=== PATIENT | male | born 1985 ===

== ENCOUNTER 2021-03-27 16:00 | Observation (INO) | payer SELFPAY ==
[2021-03-27] MEDS ORDERED: SODIUM CHLORIDE 0.9% 1000 ML 1,000 ML IV ONE (17:13)
[2021-03-27] MEDS ORDERED: MORPHINE 4 MG/1 ML INJ IV ONE (17:13)
[2021-03-27] MEDS ORDERED: ONDANSETRON 4 MG/2 ML INJ IV ONE (17:13)
--- NOTE | 2021-03-27 17:15 | Emergency Department Report ---
<ANNABEL ROTHMANNICOLE Sims - Last Filed: 03/27/21 22:17> ED Abdominal Pain HPI - General Chief Complaint: Abdominal Pain Stated Complaint: UNTREATED HERNIA/ NO BM X3DAYS/NAUSEA LBK PAIN Time Seen by Provider: 03/27/21 17:13 - Related Data Previous Rx's Medication Instructions Recorded Last Taken Type Ciprofloxacin HCl [Ciprofloxacin 500 mg PO BID #10 tablet 07/12/16 1 Day Ago Rx TAB] ~07/16/16 oxyCODONE /ACETAMINOPHEN [Percocet 1 tab PO Q6HR PRN #30 tablet 07/12/16 1 Day Ago Rx 5/325 mg] ~07/16/16 Allergies Allergy/AdvReac Type Severity Reaction Status Date / Time No Known Allergies Allergy Verified 07/09/16 20:28 ED Past Medical Hx - Medications Home Medications: Home Medications Medication Instructions Recorded Confirmed Last Taken Type Ciprofloxacin HCl [Ciprofloxacin 500 mg PO BID #10 tablet 07/12/16 03/27/21 1 Day Ago Rx TAB] ~07/16/16 oxyCODONE /ACETAMINOPHEN [Percocet 1 tab PO Q6HR PRN #30 tablet 07/12/16 03/27/21 1 Day Ago Rx 5/325 mg] ~07/16/16 ED Course - Reevaluation(s) Reevaluation #1: I reviewed the findings and management of this patient in real-time and I have personally seen and examined this patient and participated in the decision making for this patient with the midlevel. Patient is a 35-year-old male who presents emergency room for right lower quadrant abdominal pain. Patient also complains of constipation x3 or 4 days and nausea. Patient states he is also been having vomiting over the last 24 hours. Patient states the pain is severe. Patient states the pain is unbearable. Patient states that he is able to walk due to the pain. Patient states the pain is better with rest. Patient states the pain is worse with palpation and movement. Patient had a CT scan done and it showed a large right lower quadrant ventral hernia with small and large bowel. No signs of obstruction on the CT scan. I examined the patient. Patient lung sounds are clear. Patient's CV exam shows a normal S1-S2. Patient is extremely tender at the right lower quadrant and the hernia is not reducible. Clinically the patient's exam is concerning for a bowel obstruction. We will consult general surgery. Patient will be admitted to the hospitalist service for further evaluation and treatment. Patient will require admission. I discussed all results with patient. I discussed plan of care with patient. Patient agrees with plan of care and admission. Patient to be admitted to the hospitalist service. 03/27/21 21:50 ED Medical Decision Making - Lab Data Result diagrams: 03/27/21 17:51 03/27/21 17:51 ED Disposition Clinical Impression: Intractable abdominal pain, Nausea Constipation Qualifiers: Constipation type: unspecified constipation type Qualified Code(s): K59.00 - Constipation, unspecified Ventral hernia Qualifiers: Obstruction and gangrene presence: without obstruction or gangrene Qualified Code(s): K43.9 - Ventral hernia without obstruction or gangrene Disposition: 02 [facility]ORT [facility]M [facility] Condition: Stable Print Language: SLOVENIAN <SUSU CHRISTY - Last Filed: 03/27/21 22:49> ED Abdominal Pain HPI - 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 Patient states that he had an appendectomy approximately 4 years ago. He states he then noticed a small hernia to the right lower side that began a year ago. He states in the last week it has gotten significantly larger and he feels like "it has torn open." He states that he has not had a bowel movement in 3 days. He states he is not able to pass gas. He has associated nausea. he denies any vomiting, no diarrhea, no hematochezia, no melena, no hematemesis, no urinary symptoms. Patient denies any past medical history. No allergies to medications. Severity scale (0 -10): 5 ED Review of Systems ROS: Stated complaint: UNTREATED HERNIA/ NO BM X3DAYS/NAUSEA LBK PAIN Other details as noted in HPI Comment: All other systems reviewed and negative ED Past Medical Hx - Past Medical History Previous Medical History?: No Hx Congestive Heart Failure: No Hx Diabetes: No Hx Asthma: No Hx COPD: No - Surgical History Past Surgical History?: No - Social History Smoking Status: Never Smoker ED Physical Exam - General Limitations: No Limitations General appearance: alert, in no apparent distress - Head Head exam: Present: atraumatic, normocephalic - Eye Eye exam: Present: normal appearance - ENT ENT exam: Present: mucous membranes moist - Respiratory Respiratory exam: Present: normal lung sounds bilaterally. Absent: respiratory distress, wheezes, rales, rhonchi, stridor, chest wall tenderness, accessory mus matias use, decreased breath sounds, prolonged expiratory - Cardiovascular Cardiovascular Exam: Present: regular rate, normal rhythm, normal heart sounds. Absent: systolic murmur, diastolic murmur, rubs, gallop - GI/Abdominal GI/Abdominal exam: Present: soft, tenderness (RLQ), guarding (voluntary), hernia (large RLQ hernia ). Absent: rebound, rigid - Neurological Exam Neurological exam: Present: alert, oriented X3 - Psychiatric Psychiatric exam: Present: normal affect, normal mood - Skin Skin exam: Present: warm, dry, intact ED Course Vital Signs 03/27/21 03/27/21 03/27/21 17:10 17:38 18:09 Temperature 98.2 F Pulse Rate 80 77 Respiratory 18 18 Rate Blood Pressure Blood Pressure 151/98 [Right] O2 Sat by Pulse 98 97 Oximetry 03/27/21 03/27/21 18:12 18:16 Temperature Pulse Rate 91 H Respiratory 20 35 H Rate Blood Pressure 136/85 Blood Pressure [Right] O2 Sat by Pulse 99 Oximetry - Consultations Consultation #1: 03/27/[address] Dupont, general surgeon, who will consult on patient 03/27/21 22:[address] Solares, hospitalist who will accept and resume care of patient, will admit to hospitalist service, advised to place patient in surgical with telemetry ED Medical Decision Making - Lab Data Result diagrams: 03/27/21 17:51 03/27/21 17:51 Lab Results 03/27/21 03/27/21 Range/Units 17:51 17:51 WBC 6.4 (4.5-11.0) K/mm3 RBC 5.40 H (3.65-5.03) M/mm3 Hgb 15.2 (11.8-15.2) gm/dl Hct 44.6 (35.5-45.6) % MCV 83 L (84-94) fl MCH 28 (28-32) pg MCHC 34 (32-34) % RDW 13.7 (13.2-15.2) % Plt Count 231 (140-440) K/mm3 Lymph % (Auto) 34.5 (13.4-35.0) % [place] % (Auto) 9.7 H (0.0-7.3) % Eos % (Auto) 5.3 H (0.0-4.3) % Baso % (Auto) 0.7 (0.0-1.8) % Lymph # (Auto) 2.2 (1.2-5.4) K/mm3 [place] # (Auto) 0.6 (0.0-0.8) K/mm3 Eos # (Auto) 0.3 (0.0-0.4) K/mm3 Baso # (Auto) 0.0 (0.0-0.1) K/mm3 Seg Neutrophils % 49.8 (40.0-70.0) % Seg Neutrophils # 3.2 (1.8-7.7) K/mm3 Sodium 141 (137-145) mmol/L Potassium 3.7 (3.6-5.0) mmol/L Chloride 104.3 (98-107) mmol/L Carbon Dioxide 24 (22-30) mmol/L Anion Gap 16 mmol/L BUN 11 (9-20) mg/dL Creatinine 0.6 L (0.8-1.3) mg/dL Estimated GFR > 60 ml/min BUN/Creatinine Ratio 18 % Glucose 91 (75-100) mg/dL Calcium 9.2 (8.4-10.2) mg/dL Total Bilirubin 0.40 (0.1-1.2) mg/dL AST 37 (5-40) units/L ALT 107 H (7-56) units/L Alkaline Phosphatase 127 (35-129) units/L Total Protein 7.9 (6.3-8.2) g/dL Albumin 4.6 (3.9-5) g/dL Albumin/Globulin Ratio 1.4 % Lipase 113 H (13-60) units/L - Radiology Data Radiology results: report reviewed Ordering Physician: JESSEE PERKINS Date of Service: 03/27/21 Procedure(s): CT abdomen pelvis w con Accession Number(s): [id number] cc: JESSEE PERKINS CT ABDOMEN AND PELVIS WITH CONTRAST INDICATION / CLINICAL INFORMATION: Right lower quadrant pain, hernia. Constipation. TECHNIQUE: Axial CT images were obtained through the abdomen and pelvis after 100 cc Om nipaque [address] scans at this location are performed using CT dose reduction for ALARA by means of automated exposure control. COMPARISON: CT abdomen and pelvis with contrast from 07/17/2016. FINDINGS: LOWER CHEST: No significant abnormality. LIVER: There is generalized steatosis without other significant abnormalities. GALLBLADDER: Surgically absent. BILE DUCTS: No significant abnormality. PANCREAS: No significant abnormality. SPLEEN: No significant abnormality. ADRENALS: No significant abnormality. RIGHT KIDNEY / URETER: A subcentimeter simple cyst along the right lower renal pole is unchanged. No other significant abnormalities. LEFT KIDNEY / URETER: Unchanged subcentimeter simple left renal cyst. There is a 3 mm nonobstructive left lower renal pole stone. No other significant abnormalities. STOMACH / SMALL BOWEL: No significant abnormality. COLON: No significant abnormality. APPENDIX: Not visualized. PERITONEUM: No free fluid. No free air. No fluid collection. LYMPH NODES: No significant adenopathy. AORTA / ARTERIES: No significant abnormality. IVC / VEINS: No significant abnormality. URINARY BLADDER: No significant abnormality. REPRODUCTIVE ORGANS: No significant abnormality. ADDITIONAL FINDINGS: There is an uncomplicated large ventral hernia involving the majority of the right abdomen containing fat and multiple small and large bowel loops. SKELETAL SYSTEM: No significant abnormality. IMPRESSION: 1. No acute abnormality of the abdomen or pelvis. 2. Large uncomplicated right ventral hernia. 3. Additional findings as above. Signer Name: Esa Mary MD Signed: 03/27/2021 9:17 PM Workstation Name: [id number] Transcribed By: [place] Dictated By: Esa Mary MD Electronically Authenticated By: Esa Mary MD Signed Date/Time: 03/27/212116 DD/ 11 TD/TT: - Medical Decision Making Language line used for [place] interpretation Patient is a 35-year-old male presents emergency room with complaints of a hernia that exacerbated in the last week. Patient states that he had an appendectomy approximately 4 years ago. He states he then noticed a small hernia to the right lower side that began a year ago. He states in the last week it has gotten significantly larger and he feels like "it has torn open." He states that he has not had a bowel movement in 3 days. He states he is not able to pass gas. He has associated nausea. he denies any vomiting, no diarrhea, no hematochezia, no melena, no hematemesis, no urinary symptoms. Patient denies any past medical history. No allergies to medications. VSS. On exam patient has right lower quadrant abdominal tenderness with large hernia present. Labs with elevated lipase, otherwise stable. CT abdomen pelvis with IV contrast: 1. No acute abnormality of the abdomen or pelvis. 2. Large uncomplicated right ventral hernia. 3. Additional findings as above. Patient given pain medication but continued to have pain. Patient evaluated at bedside by Dr. Chaudhary ED, ER attending who advised admission with surgical consultation. Spoke to Dr. Dupont, general surgeon, who will consult on patient. spoke to Dr. Solares, hospitalist who will accept and resume care of patient, will admit to hospitalist service, advised to place patient in 3B surgical with telemetry. Critical care attestation.: If time is entered above; I have spent that time in minutes in the direct care of this critically ill patient, excluding procedure time. ED Disposition Is pt being admited?: Yes Does the pt Need Aspirin: No Time of Disposition: 22:00
[2021-03-27 18:06] LABS: Basophils % (Auto) 0.7 % (0.0-1.8); Eosinophils # (Auto) 0.3 K/mm3 (0.0-0.4); Eosinophils % (Auto) 5.3 % (0.0-4.3); Hematocrit 44.6 % (35.5-45.6); Hemoglobin 15.2 gm/dl (11.8-15.2); Lymphocytes # (Auto) 2.2 K/mm3 (1.2-5.4); Lymphocytes % (Auto) 34.5 % (13.4-35.0); Mean Corpuscular HGB Conc 34 % (32-34); Mean Corpuscular Volume 83 fl (84-94); Monocytes # (Auto) 0.6 K/mm3 (0.0-0.8); Monocytes % (Auto) 9.7 % (0.0-7.3); Platelet Count 231 K/mm3 (140-440); Red Cell Distribution Width 13.7 % (13.2-15.2)
[2021-03-27 18:39] LABS: Alanine Aminotransferase 107 units/L (7-56); Albumin 4.6 g/dL (3.9-5); Blood Urea Nitrogen 11 mg/dL (9-20); Calcium 9.2 mg/dL (8.4-10.2); Hemolysis Index 9
[2021-03-27 18:47] LABS: BUN/Creatinine Ratio 18
--- NOTE | 2021-03-27 21:21 | Cat Scan Report ---
CT ABDOMEN AND PELVIS WITH CONTRAST INDICATION / CLINICAL INFORMATION: Right lower quadrant pain, hernia. Constipation. TECHNIQUE: Axial CT images were obtained through the abdomen and pelvis after 100 cc Omnipaque [address] scans at this location are performed using CT dose reduction for ALARA by means of automated exposure control. COMPARISON: CT abdomen and pelvis with contrast from 07/17/2016. FINDINGS: LOWER CHEST: No significant abnormality. LIVER: There is generalized steatosis without other significant abnormalities. GALLBLADDER: Surgically absent. BILE DUCTS: No significant abnormality. PANCREAS: No significant abnormality. SPLEEN: No significant abnormality. ADRENALS: No significant abnormality. RIGHT KIDNEY / URETER: A subcentimeter simple cyst along the right lower renal pole is unchanged. No other significant abnormalities. LEFT KIDNEY / URETER: Unchanged subcentimeter simple left renal cyst. There is a 3 mm nonobstructive left lower renal pole stone. No other significant abnormalities. STOMACH / SMALL BOWEL: No significant abnormality. COLON: No significant abnormality. APPENDIX: Not visualized. PERITONEUM: No free fluid. No free air. No fluid collection. LYMPH NODES: No significant adenopathy. AORTA / ARTERIES: No significant abnormality. IVC / VEINS: No significant abnormality. URINARY BLADDER: No significant abnormality. REPRODUCTIVE ORGANS: No significant abnormality. ADDITIONAL FINDINGS: There is an uncomplicated large ventral hernia involving the majority of the rig ht abdomen containing fat and multiple small and large bowel loops. SKELETAL SYSTEM: No significant abnormality. IMPRESSION: 1. No acute abnormality of the abdomen or pelvis. 2. Large uncomplicated right ventral hernia. 3. Additional findings as above. Signer Name: Esa Mary MD Signed: 03/27/2021 9:17 PM Workstation Name: [id number]
[2021-03-27] MEDS ORDERED: HYDROmorphone 1 MG/1 ML INJ IV ONE (21:50)
[2021-03-27] MEDS ORDERED: ACETAMINOPHEN 325 MG TAB PO PRN (23:28)
[2021-03-27] MEDS ORDERED: MORPHINE 2 MG/1 ML INJ IV PRN (23:28)
[2021-03-27] MEDS ORDERED: MORPHINE 4 MG/1 ML INJ IV PRN (23:28)
[2021-03-27] MEDS ORDERED: ONDANSETRON 4 MG/2 ML INJ IV PRN (23:28)
--- NOTE | 2021-03-27 23:36 | History and Physical Report ---
History of Present Illness Date of examination: 03/27/21 Date of admission: 03/27/2021 Chief complaint: Abdominal Pain History of present illness: 35-year-old male presenting to the emergency room today complaining of abdominal pain which has been ongoing for the past 1 week. Patient states that he noticed a small hernia to the right lower abdomen about a year ago. However hernia at started getting larger over the past few days. He has also complained of constipation for the past 3 days and also has some associated nausea. He denies any vomiting, no diarrhea, no bloody stool, no hematemesis, no hematuria or dysuria. He denies any fever or chills. No headache or dizziness. Patient states that he had appendectomy about 4 years ago. He denies any sick contacts and no recent travel. Denies any contact with anyone with COVID-19. Work-up in the emergency room today reveals: a large right lower quadrant ventral hernia with small and large bowel. No signs of obstruction on the CT scan. Labs were essentially unremarkable. General surgeon Dr. Dupont was consulted by the ER physician. Patient has been made n.p.o. and will be promptly evaluated in the a.m. Past History Past Medical History: No medical history Past Surgical History: No surgical history Social history: no significant social history Family history: no significant family history Medications and Allergies Allergies Allergy/AdvReac Type Severity Reaction Status Date / Time No Known Allergies Allergy Verified 07/09/16 20:28 Home Medications Medication Instructions Recorded Confirmed Last Taken Type Ciprofloxacin HCl [Ciprofloxacin 500 mg PO BID #10 tablet 07/12/16 03/27/21 1 Day Ago Rx TAB] ~07/16/16 oxyCODONE /ACETAMINOPHEN [Percocet 1 tab PO Q6HR PRN #30 tablet 07/12/16 03/27/21 1 Day Ago Rx 5/325 mg] ~07/16/16 Active Meds: Active Medications Acetaminophen (Acetaminophen 325 Mg Tab) 650 mg PO Q4H PRN PRN Reason: Pain MILD(1-3)/Fever >100.5/JOINER Sodium Chloride (Nacl 0.9% 1000 Ml) 1,000 mls @ 125 mls/hr IV DIRECT SALOMON Morphine Sulfate (Morphine 2 Mg/1 Ml Inj) 2 mg IV Q4H PRN PRN Reason: Pain, Moderate (4-6) Morphine Sulfate (Morphine 4 Mg/1 Ml Inj) 4 mg IV Q4H PRN PRN Reason: Pain , Severe (7-10) Ondansetron HCl (Ondansetron 4 Mg/2 Ml Inj) 4 mg IV Q8H PRN PRN Reason: Nausea And Vomiting Sodium Chloride (Sodium Chloride 0.9% 10 Ml Flush Syringe) 10 ml IV BID SALOMON Sodium Chloride (Sodium Chloride 0.9% 10 Ml Flush Syringe) 10 ml IV PRN PRN PRN Reason: LINE FLUSH Review of Systems Constitutional: no fever, no chills Ears, nose, mouth and throat: no nasal congestion, no sore throat Cardiovascular: no chest pain, no palpitations Respiratory: no cough, no shortness of breath Gastrointestinal: abdominal pain, nausea, no vomiting, no diarrhea Genitourinary Male: no dysuria, no hematuria, no flank pain, no nocturia Musculoskeletal: no neck pain, no low back pain Integumentary: no rash, no pruritis Neurological: no headaches, no confusion Psychiatric: no anxiety, no depression Endocrine: no polyphagia, no polydipsia, no polyuria, no nocturia Exam - Constitutional Vitals: Temp Pulse Resp BP Pulse Ox 98.2 F 69 18 130/87 100 03/27/21 17:10 03/27/21 23:00 03/27/21 23:15 03/27/21 23:00 03/27/21 23:00 General appearance: Present: mild distress, well-nourished - EENT Eyes: Present: PERRL, EOM intact. Absent: scleral icterus ENT: hearing intact, clear oral mucosa, dentition normal - Neck Neck: Present: supple, normal ROM - Respiratory Respiratory effort: normal Respiratory: bilateral: CTA - Cardiovascular Rhythm: regular Heart Sounds: Present: S1 & S2. Absent: gallop, systolic murmur, diastolic murmur, rub, click - Extremities Extremities: no ischemia, pulses intact, pulses symmetrical, No edema, normal temperature, normal color, Full ROM Peripheral Pulses: within normal limits - Abdominal General gastrointestinal: Present: soft, tender, distended, hypoactive bowel sounds, mass (Right lower quadrant swelling,Minmal guarding,No rebound tender ness.), hernia - Integumentary Integumentary: Present: clear, warm, dry. Absent: rash - Musculoskeletal Musculoskeletal: strength equal bilaterally - Psychiatric Psychiatric: appropriate mood/affect, intact judgment & insight, memory intact, cooperative - Neurologic Neurologic: CNII-XII intact, no focal deficits, moves all extremities Results - Labs CBC & Chem 7: 03/27/21 17:51 03/27/21 17:51 Labs: Abnormal lab results 03/27/21 03/27/21 Range/Units 17:51 17:51 RBC 5.40 H (3.65-5.03) M/mm3 MCV 83 L (84-94) fl [place] % (Auto) 9.7 H (0.0-7.3) % Eos % (Auto) 5.3 H (0.0-4.3) % Creatinine 0.6 L (0.8-1.3) mg/dL ALT 107 H (7-56) units/L Lipase 113 H (13-60) units/L Assessment and Plan - Patient Problems (1) Intractable abdominal pain Current Visit: No Status: Inactive Plan to address problem: Possibly secondary to the large ventral hernia. Patient has been made n.p.o. and will place on IV analgesic medication as needed. (2) Ventral hernia Current Visit: No Status: Inactive Qualifiers: Obstruction and gangrene presence: without obstruction or gangrene Qualified Code(s): K43.9 - Ventral hernia without obstruction or gangrene Plan to address problem: Consult has been placed to general surgery for evaluation. Meanwhile patient has been made n.p.o. (3) DVT prophylaxis Current Visit: No Status: Acute Plan to address problem: Patient placed on sequential compression device. (4) Full code status Current Visit: No Status: Acute Plan to address problem: Patient is full code.
[2021-03-28] MEDS: SODIUM CHLORIDE 0.9% 1000 ML 1,000 ML IV SCH ×2 (05:15→22:26)
[2021-03-28] MEDS: DOCUSATE SODIUM 100 MG CAP PO SCH ×2 (09:01→22:28)
[2021-03-28] MEDS: POLYETHYLENE GLYCOL 3350 17 GM POWDER PO SCH (09:01)
--- NOTE | 2021-03-28 09:22 | Progress Note ---
Assessment and Plan Assessment and plan: Abdominal pain Ventral hernia 03/28/2021. Patient with abdominal pain related to large ventral hernia. CT scan reveals an uncomplicated large ventral hernia involving majority of the right abdomen containing fat and multiple small and large bowel loops. Await surgery evaluation. History Interval history: No new issues overnight. Hospitalist Physical - Constitutional Vitals: Temp Pulse Resp BP Pulse Ox 97.8 F 58 L 17 130/82 99 03/28/21 08:27 03/28/21 08:27 03/28/21 09:01 03/28/21 08:27 03/28/21 08:27 General appearance: Present: no acute distress, well-nourished - EENT Eyes: Present: PERRL, EOM intact ENT: hearing intact, clear oral mucosa, dentition normal - Neck Neck: Present: supple, normal ROM - Respiratory Respiratory effort: normal Respiratory: bilateral: CTA - Cardiovascular Rhythm: regular Heart Sounds: Present: S1 & S2. Absent: gallop, rub - Extremities Extremities: no ischemia, No edema, Full ROM - Abdominal General gastrointestinal: soft, non-tender, non-distended, normal bowel sounds - Integumentary Integumentary: Present: clear, warm, dry - Neurologic Neurologic: CNII-XII intact, moves all extremities Results - Labs CBC & Chem 7: 03/27/21 17:51 03/27/21 17:51 Labs: Laboratory Last Values WBC 6.4 K/mm3 (4.5-11.0) 03/27/21 17:51 RBC 5.40 M/mm3 (3.65-5.03) H 03/27/21 17:51 Hgb 15.2 gm/dl (11.8-15.2) 03/27/21 17:51 Hct 44.6 % (35.5-45.6) 03/27/21 17:51 MCV 83 fl (84-94) L 03/27/21 17:51 MCH 28 pg (28-32) 03/27/21 17:51 MCHC 34 % (32-34) 03/27/21 17:51 RDW 13.7 % (13.2-15.2) 03/27/21 17:51 Plt Count 231 K/mm3 (140-440) 03/27/21 17:51 Lymph % (Auto) 34.5 % (13.4-35.0) 03/27/21 17:51 [place] % (Auto) 9.7 % (0.0-7.3) H 03/27/21 17:51 Eos % (Auto) 5.3 % (0.0-4.3) H 03/27/21 17:51 Baso % (Auto) 0.7 % (0.0-1.8) 03/27/21 17:51 Lymph # (Auto) 2.2 K/mm3 (1.2-5.4) 03/27/21 17:51 [place] # (Auto) 0.6 K/mm3 (0.0-0.8) 03/27/21 17:51 Eos # (Auto) 0.3 K/mm3 (0.0-0.4) 03/27/21 17:51 Baso # (Auto) 0.0 K/mm3 (0.0-0.1) 03/27/21 17:51 Seg Neutrophils % 49.8 % (40.0-70.0) 03/27/21 17:51 Seg Neutrophils # 3.2 K/mm3 (1.8-7.7) 03/27/21 17:51 Sodium 141 mmol/L (137-145) 03/27/21 17:51 Potassium 3.7 mmol/L (3.6-5.0) 03/27/21 17:51 Chloride 104.3 mmol/L (98-107) 03/27/21 17:51 Carbon Dioxide 24 mmol/L (22-30) 03/27/21 17:51 Anion Gap 16 mmol/L 03/27/21 17:51 BUN 11 mg/dL (9-20) 03/27/21 17:51 Creatinine 0.6 mg/dL (0.8-1.3) L 03/27/21 17:51 Estimated GFR > 60 ml/min 03/27/21 17:51 BUN/Creatinine Ratio 18 % 03/27/21 17:51 Glucose 91 mg/dL (75-100) 03/27/21 17:51 Calcium 9.2 mg/dL (8.4-10.2) 03/27/21 17:51 Total Bilirubin 0.40 mg/dL (0.1-1.2) 03/27/21 17:51 AST 37 units/L (5-40) 03/27/21 17:51 ALT 107 units/L (7-56) H 03/27/21 17:51 Alkaline Phosphatase 127 units/L (35-129) 03/27/21 17:51 Total Protein 7.9 g/dL (6.3-8.2) 03/27/21 17:51 Albumin 4.6 g/dL (3.9-5) 03/27/21 17:51 Albumin/Globulin Ratio 1.4 % 03/27/21 17:51 Lipase 113 units/L (13-60) H 03/27/21 17:51 Naidu/IV: Voiding Method Urinal Active Medications - Current Medications Current Medications: Generic Name Dose Route Start Last Admin Trade Name Freq PRN Reason Stop Dose Admin Acetaminophen 650 mg 03/27/21 23:28 Acetaminophen 325 Mg Tab PO Q4H PRN Pain MILD(1-3)/Fever >100.5/JOINER Docusate Sodium 100 mg 03/28/21 10:00 03/28/21 09:01 Docusate Sodium 100 Mg Cap PO 100 mg BID SALOMON Administration Sodium Chloride 1,000 mls @ 125 mls/hr 03/27/21 23:30 03/28/21 05:15 Nacl 0.9% 1000 Ml IV 125 mls/hr DIRECT SALOMON Administration Morphine Sulfate 2 mg 03/27/21 23:28 03/28/21 09:01 Morphine 2 Mg/1 Ml Inj IV 2 mg Q4H PRN Administration Pain, Moderate (4-6) Morphine Sulfate 4 mg 03/27/21 23:28 Morphine 4 Mg/1 Ml Inj IV Q4H PRN Pain , Severe (7-10) Ondansetron HCl 4 mg 03/27/21 23:28 03/28/21 09:01 Ondansetron 4 Mg/2 Ml Inj IV 4 mg Q8H PRN Administration Nausea And Vomiting Polyethylene Glycol 17 gm 03/28/21 10:00 03/28/21 09:01 Polyethylene Glycol 3350 17 Gm Powder PO 17 gm QDAY SALOMON Administration Sodium Chloride 10 ml 03/28/21 10:00 03/28/21 09:02 Sodium Chloride 0.9% 10 Ml Flush Syringe IV 10 ml BID SALOMON Administration Sodium Chloride 10 ml 03/27/21 23:28 Sodium Chloride 0.9% 10 Ml Flush Syringe IV PRN PRN LINE FLUSH
[2021-03-28 11:43] LABS: Basophils % (Auto) 0.5 % (0.0-1.8); Eosinophils # (Auto) 0.2 K/mm3 (0.0-0.4); Eosinophils % (Auto) 3.5 % (0.0-4.3); Hematocrit 42.6 % (35.5-45.6); Hemoglobin 14.5 gm/dl (11.8-15.2); Lymphocytes # (Auto) 2.3 K/mm3 (1.2-5.4); Mean Corpuscular HGB Conc 34 % (32-34); Mean Corpuscular Volume 83 fl (84-94); Monocytes # (Auto) 0.5 K/mm3 (0.0-0.8); Monocytes % (Auto) 7.8 % (0.0-7.3); Platelet Count 220 K/mm3 (140-440); Red Blood Count 5.13 M/mm3 (3.65-5.03); Red Cell Distribution Width 13.8 % (13.2-15.2)
[2021-03-28 11:53] LABS: Blood Urea Nitrogen 11 mg/dL (9-20); Calcium 9.1 mg/dL (8.4-10.2); Hemolysis Index 10
[2021-03-28 11:54] LABS: INR 0.98 (0.87-1.13)
[2021-03-28 12:08] LABS: BUN/Creatinine Ratio 22
--- NOTE | 2021-03-28 14:04 | Consultation ---
History of Present Illness Consult date: 03/28/21 Reason for consult: abdominal pain - History of present illness History of present illness: 35-year-old male presents emergency room with a several day history of no bowel movement and nausea. He denies vomiting. Patient has a large hernia on his right side that he says has progressively gotten larger over the last 4 years since his open appendectomy. Patient says that his pain is about a 6 out of 10. Patient had a CT scan that showed a large nonobstructing right sided abdominal wall hernia. There was no acute pathology in his abdominal cavity at this time. Patient says nothing makes the pain better or worse and says that he would like to have his hernia fixed. Past History Past Medical History: No medical history Past Surgical History: appendectomy, Other Social history: no significant social history Family history: no significant family history Medications and Allergies Allergies Allergy/AdvReac Type Severity Reaction Status Date / Time No Known Allergies Allergy Verified 07/09/16 20:28 Home Medications Medication Instructions Recorded Confirmed Last Taken Type Ciprofloxacin HCl [Ciprofloxacin 500 mg PO BID #10 tablet 07/12/16 03/27/21 1 Day Ago Rx TAB] ~07/16/16 oxyCODONE /ACETAMINOPHEN [Percocet 1 tab PO Q6HR PRN #30 tablet 07/12/16 03/27/21 1 Day Ago Rx 5/325 mg] ~07/16/16 Active Meds: Active Medications Acetaminophen (Acetaminophen 325 Mg Tab) 650 mg PO Q4H PRN PRN Reason: Pain MILD(1-3)/Fever >100.5/JOINER Docusate Sodium (Docusate Sodium 100 Mg Cap) 100 mg PO BID [facility] Last Admin: 03/28/21 09:01 Dose: 100 mg Documented by: Sodium Chloride (Nacl 0.9% 1000 Ml) 1,000 mls @ 125 mls/hr IV DIRECT [facility] Last Admin: 03/28/21 05:15 Dose: 125 mls/hr Documented by: Morphine Sulfate (Morphine 2 Mg/1 Ml Inj) 2 mg IV Q4H PRN PRN Reason: Pain, Moderate (4-6) Last Admin: 03/28/21 09:01 Dose: 2 mg Documented by: Morphine Sulfate (Morphine 4 Mg/1 Ml Inj) 4 mg IV Q4H PRN PRN Reason: Pain , Severe (7-10) Ondansetron HCl (Ondansetron 4 Mg/2 Ml Inj) 4 mg IV Q8H PRN PRN Reason: Nausea And Vomiting Last Admin: 03/28/21 09:01 Dose: 4 mg Documented by: Polyethylene Glycol (Polyethylene Glycol 3350 17 Gm Powder) 17 gm PO QDAY [facility] Last Admin: 03/28/21 09:01 Dose: 17 gm Documented by: Sodium Chloride (Sodium Chloride 0.9% 10 Ml Flush Syringe) 10 ml IV BID [facility] Last Admin: 03/28/21 09:02 Dose: 10 ml Documented by: Sodium Chloride (Sodium Chloride 0.9% 10 Ml Flush Syringe) 10 ml IV PRN PRN PRN Reason: LINE FLUSH Review of Systems All systems: negative - Constitutional fatigue - Gastrointestinal abdominal pain, nausea, constipation Exam Vital Signs Temp Pulse Resp BP Pulse Ox 98.2 F 80 18 151/98 98 03/27/21 17:10 03/27/21 17:10 03/27/21 17:10 03/27/21 17:10 03/27/21 17:10 - General physical appearance Positive: well developed, no distress, moderate pain - ENT Positive: normal pinna, normal nares - Respiratory Positive: normal expansion, normal respiratory effort - Cardiovascular Heart Sounds: Present: S1 & S2 - Extremities Extremities: no ischemia - Abdomen Abdomen: Present: soft, other (Right lower quadrant horizontal scar, right large reducible hernia that does not stay reduced due to its size and loss of domain. No skin changes, but tender to palpation no peritoneal signs.) - Neurologic Neurologic: alert and oriented to time, place and person - Psychiatric Psychiatric: appropriate mood/affect, depressed Results - Labs 03/28/21 11:25 03/28/21 11:25 Abnormal lab results 03/27/21 03/27/21 03/28/21 Range/Units 17:51 17:51 11:25 RBC 5.40 H 5.13 H (3.65-5.03) M/mm3 MCV 83 L 83 L (84-94) fl Gove % (Auto) 9.7 H 7.8 H (0.0-7.3) % Eos % (Auto) 5.3 H (0.0-4.3) % Creatinine 0.6 L (0.8-1.3) mg/dL ALT 107 H (7-56) units/L Lipase 113 H (13-60) units/L 03/28/21 Range/Units 11:25 RBC (3.65-5.03) M/mm3 MCV (84-94) fl Gove % (Auto) (0.0-7.3) % Eos % (Auto) (0.0-4.3) % Creatinine 0.5 L (0.8-1.3) mg/dL ALT (7-56) units/L Lipase (13-60) units/L Diabetes panel 03/27/21 03/28/21 Range/Units 17:51 11:25 Sodium 141 140 (137-145) mmol/L Potassium 3.7 3.6 (3.6-5.0) mmol/L Chloride 104.3 103.2 (98-107) mmol/L Carbon Dioxide 24 27 (22-30) mmol/L BUN 11 11 (9-20) mg/dL Creatinine 0.6 L 0.5 L (0.8-1.3) mg/dL Glucose 91 89 (75-100) mg/dL Calcium 9.2 9.1 (8.4-10.2) mg/dL AST 37 (5-40) units/L ALT 107 H (7-56) units/L Alkaline Phosphatase 127 (35-129) units/L Total Protein 7.9 (6.3-8.2) g/dL Albumin 4.6 (3.9-5) g/dL Calcium panel 03/27/21 03/28/21 Range/Units 17:51 11:25 Calcium 9.2 9.1 (8.4-10.2) mg/dL Albumin 4.6 (3.9-5) g/dL Pituitary panel 03/27/21 03/28/21 Range/Units 17:51 11:25 Sodium 141 140 (137-145) mmol/L Potassium 3.7 3.6 (3.6-5.0) mmol/L Chloride 104.3 103.2 (98-107) mmol/L Carbon Dioxide 24 27 (22-30) mmol/L BUN 11 11 (9-20) mg/dL Creatinine 0.6 L 0.5 L (0.8-1.3) mg/dL Glucose 91 89 (75-100) mg/dL Calcium 9.2 9.1 (8.4-10.2) mg/dL Adrenal panel 03/27/21 03/28/21 Range/Units 17:51 11:25 Sodium 141 140 (137-145) mmol/L Potassium 3.7 3.6 (3.6-5.0) mmol/L Chloride 104.3 103.2 (98-107) mmol/L Carbon Dioxide 24 27 (22-30) mmol/L BUN 11 11 (9-20) mg/dL Creatinine 0.6 L 0.5 L (0.8-1.3) mg/dL Glucose 91 89 (75-100) mg/dL Calcium 9.2 9.1 (8.4-10.2) mg/dL Total Bilirubin 0.40 (0.1-1.2) mg/dL AST 37 (5-40) units/L ALT 107 H (7-56) units/L Alkaline Phosphatase 127 (35-129) units/L Total Protein 7.9 (6.3-8.2) g/dL Albumin 4.6 (3.9-5) g/dL - Imaging CT scan - abdomen: report reviewed, image reviewed CT scan - pelvis: report reviewed, image reviewed Assessment and Plan 35-year-old male with a large right sided nonobstructing loss of domain abdominal wall hernia. Patient is afebrile and stable with no signs of bowel obstruction. Patient's hernia is complicated, and will require an extensive complex repair (such asTARR, or extensive lateral component separation) in order to adequately repair his hernia and decrease the chance of recurrence. Currently at this time this facility does not have the resources or expertise to address his repair. Recommend referring to a hernia specialist (ex. Dr. Obrien @ [place]) on outpatient basis for evaluation. Should status change and have an emergency such as a bowel obstruction that requires emergency surgery, the obstruction would be emergently addressed however, that we will likely result in suboptimal hernia repair. Agree with bowel regimen to allow patient to have bowel obstruction which may ease his abdominal discomfort. Will start patient on clear liquids and advance as tolerated. Will order abdominal binder for comfort which patient may wear at his discretion. At this time no acute surgical intervention planned.
[2021-03-29 06:41] LABS: Basophils # (Auto) 0.1 K/mm3 (0.0-0.1); Basophils % (Auto) 0.8 % (0.0-1.8); Eosinophils # (Auto) 0.4 K/mm3 (0.0-0.4); Eosinophils % (Auto) 6.7 % (0.0-4.3); Hematocrit 43.3 % (35.5-45.6); Hemoglobin 14.8 gm/dl (11.8-15.2); Lymphocytes # (Auto) 2.2 K/mm3 (1.2-5.4); Lymphocytes % (Auto) 34.5 % (13.4-35.0); Mean Corpuscular HGB Conc 34 % (32-34); Mean Corpuscular Volume 84 fl (84-94); Monocytes # (Auto) 0.5 K/mm3 (0.0-0.8); Monocytes % (Auto) 8.4 % (0.0-7.3); Platelet Count 203 K/mm3 (140-440); Red Blood Count 5.19 M/mm3 (3.65-5.03)
[2021-03-29 06:59] LABS: BUN/Creatinine Ratio 17; Blood Urea Nitrogen 12 mg/dL (9-20); Calcium 8.9 mg/dL (8.4-10.2); Hemolysis Index 4
--- NOTE | 2021-03-29 09:22 | Discharge Summary ---
Providers - Providers Date of Admission: 03/27/21 22:41 Date of discharge: 03/29/21 Attending physician: MALINDA PIMENTEL 03/27/21 21:59 Consult to Physician [CONS] Stat Comment: JESSEE Adorno spoke with Dr. Keen @ [id number] Consulting Provider: DELPHINE KEEN Physician Instructions: Reason For Exam: large hernia, intractable pain, constipation Primary care physician: CLINICAL RN LIAISON Hospitalization Reason for admission: Abdominal pain Condition: Stable Hospital course: 35-year-old male presents emergency room with a several day history of no bowel movement and nausea. He denied vomiting. Patient has a large hernia on his right side that he says has progressively gotten larger over the last 4 years since his open appendectomy. Patient says that his pain is about a 6 out of 10. Patient had a CT scan that showed a large nonobstructing right sided abdominal wall hernia. There was no acute pathology in his abdominal cavity at this time. Patient says nothing makes the pain better or worse and says that he would like to have his hernia fixed. The patient was admitted with diagnosis of ventral hernia and abdominal pain. Surgery evaluated the patient and reported that the patient's hernia is complicated, and will require an extensive complex repair (such asTARR, or extensive lateral component separation) in order to adequately repair his hernia and decrease the chance of recurrence. Currently at this time this facility does not have the resources or expertise to address his repair. Recommend referring to a hernia specialist (ex. Dr. Obrien @ [place]) on outpatient basis for evaluation. Should status change and have an emergency such as a bowel obstruction that requires emergency surgery, the obstruction would be emergently addressed however, that we will likely result in suboptimal hernia repair. The patient's diet was advanced starting with clear liquids. Surgery ordered abdominal binder for comfort which patient may wear at his discretion. Surgery felt patient could discharge home. Dedicated discharge time 35 minutes Disposition: 01 HOME / SELF CARE / HOMELESS Final Discharge Diagnosis (Prints w/discharge instructions): large right sided nonobstructing loss of domain abdominal wall hernia. Core Measure Documentation - Palliative Care Palliative Care/ Comfort Measures: Not Applicable - Core Measures Any of the following diagnoses?: none Exam - Constitutional Vitals: Temp Pulse Resp BP Pulse Ox 97.9 F 63 18 123/76 97 03/29/21 08:52 03/29/21 08:52 03/29/21 08:52 03/29/21 08:52 03/29/21 08:52 General appearance: Present: no acute distress, well-nourished - EENT Eyes: Present: PERRL ENT: hearing intact, clear oral mucosa - Neck Neck: Present: supple, normal ROM - Respiratory Respiratory effort: normal Respiratory: bilateral: CTA - Cardiovascular Heart Sounds: Present: S1 & S2. Absent: rub, click - Extremities Extremities: pulses symmetrical, No edema Peripheral Pulses: within normal limits - Abdominal General gastrointestinal: Present: soft, non-tender, non-distended, normal bowel sounds Male genitourinary: Present: normal - Integumentary Integumentary: Present: clear, warm, dry - Musculoskeletal Musculoskeletal: gait normal, strength equal bilaterally - Psychiatric Psychiatric: appropriate mood/affect, intact judgment & insight - Neurologic Neurologic: CNII-XII intact, moves all extremities Plan Activity: advance as tolerated Weight Bearing Status: Weight Bear as Tolerated Diet: regular Additional Instructions: Recommend referring to a hernia specialist (ex. Dr. Obrien @ [place]) on outpatient basis for evaluation. Follow up with: PRIMARY MD DUNG [Primary Care Provider] - 7 Days LALO DYKES MD [Staff Physician] - 7 Days Prescriptions: Docusate Sodium [Colace CAP] 100 mg PO BID #60 capsule polyethylene glycoL 3350 [Miralax 3350] 17 gm PO QDAY #30 powd.pack
[2021-03-29] MEDS: POLYETHYLENE GLYCOL 3350 17 GM POWDER PO SCH (11:46)
[2021-03-29] MEDS: DOCUSATE SODIUM 100 MG CAP PO SCH (11:46)
[2021-03-29 12:23] VITALS: BP 100/51
== END 2021-03-29 12:30 | disposition home or self-care (01) ==
LOC: ED 16:00 → 4A 22:41
PROVIDERS: ADMIT Internal Medicine Geriatric Medicine; ATTEND Hospitalist
DX: K43.9 Ventral hernia without obstruction or gangrene (principal); K59.00 Constipation, unspecified; Z90.49 Acquired absence of other specified parts of digestive tract; Z79.899 Other long term (current) drug therapy; Z98.890 Other specified postprocedural states
CPT/HCPCS: 36415; 74177; 80048; 80053; 83690; 85025; 85610; 96361; 96374; 96375; 96376; 99285; G0378; J1170; J2270; J2405; J7030; Q9967